=== PATIENT | female | born 1990 | race Two or more races ===

== ENCOUNTER 2019-12-04 14:48 | Outpatient (CLI) | payer OTHER ==
[2019-12-04 16:46] LABS: APPEARANCE,URINE CLEAR; BILIRUBIN,URINE NEGATIVE (NEGATIVE); COLOR,URINE YELLOW; GLUCOSE, URINE >=500 mg/dL (NEGATIVE); KETONES,URINE TRACE mg/dL (NEGATIVE); LEUKOCYTE ESTERASE,URINE NEGATIVE (NEGATIVE); NITRITE,URINE NEGATIVE (NEGATIVE); PROTEIN,URINE NEGATIVE (NEGATIVE); URINE SPECIFIC GRAVITY 1.017; UROBILINOGEN,URINE NEGATIVE mg/dL (<2.0)
[2019-12-04 17:01] LABS: URINE AMPHETAMINES SCREEN NEGATIVE; URINE BARBITURATES SCREEN NEGATIVE; URINE BENZODIAZEPINES SCREEN NEGATIVE; URINE COCAINE SCREEN NEGATIVE; URINE MARIJUANA (THC) SCREEN NEGATIVE; URINE METHADONE SCREEN NEGATIVE; URINE PHENCYCLIDINE SCREEN NEGATIVE
--- NOTE | 2019-12-04 19:35 | Non Stress Test Report ---
Non Stress Test Datetime Report Generated by CPN: 12/04/2019 19:34 DEMOGRAPHIC EGA NST: 35.2 VITAL SIGNS Temperature - NST: 99.2 Pulse - NST: 109 RESP - NST: 18 NBPSYS NST: 90 NBPDIA NST: 52 MONITORING Monitor Explained: Monitor Explained; Test Explained; Patient Verbalized Understanding (Annotations: Data stored by [facility] on behalf of user) Time on Monitor: 12/04/2019 15:15 Time off Monitor: 12/04/2019 16:30 NST Duration: 75 NST INTERVENTIONS NST Interventions: PO Hydration Physician Notified NST: Ric Malone, CNM BABY A: [id number] BABY A Movement : Present Contraction Frequency : x1 FHR Baseline : 145 Accelerations : 15X15 Decelerations : None Variability : Moderate 6-25bpm NST Review: Meets Criteria for Reactive NST NST Review and Verified By : Pebbles chang [facility] NST Results: Reactive NST REPORT Report Trigger: Send Report
== END 2019-12-04 16:47 | disposition home or self-care (01) ==
LOC: LC 14:48
PROVIDERS: ATTEND Obstetrics & Gynecology Gynecology
DX: O36.8130 Decreased fetal movements, third trimester, not applicable or unspecified (principal); Z3A.35 35 weeks gestation of pregnancy
CPT/HCPCS: 59025; 80307; 81001; 82962

== ENCOUNTER 2019-12-23 13:39 | Inpatient (IN) | payer OTHER ==
[2019-12-23 14:37] LABS: APPEARANCE,URINE CLEAR; BILIRUBIN,URINE NEGATIVE (NEGATIVE); COLOR,URINE YELLOW; GLUCOSE, URINE NEGATIVE (NEGATIVE); KETONES,URINE NEGATIVE (NEGATIVE); LEUKOCYTE ESTERASE,URINE NEGATIVE (NEGATIVE); NITRITE,URINE NEGATIVE (NEGATIVE); PROTEIN,URINE NEGATIVE (NEGATIVE); UROBILINOGEN,URINE NEGATIVE mg/dL (<2.0)
[2019-12-23] MEDS ORDERED: CEFAZOLIN SODIUM 2 GM in DEXTROSE 5%-WATER 50 ML IV PRN (14:40)
[2019-12-23] MEDS ORDERED: CITRIC ACID/SODIUM CITRATE ORAL SOLN 15 ML UDCUP ONE (14:51)
[2019-12-23] MEDS ORDERED: CEFAZOLIN 2 GM/D5W RTU 2 GM/50 ML RTUPB IV ONE (14:51)
--- NOTE | 2019-12-23 14:51 | Admission Physical ---
Datetime Report Generated by CPN: 12/23/2019 14:50 CURRENT ADMISSION Chief Complaint: Suspected Ruptured Membranes Admit Impression : Term, Intrauterine ; Ruptured Membranes; Repeat Section Admit Impression- Other: Hx GDM Admit Plan: Admit to Unit; Initiate Section Protocol ALLERGIES Medication Allergies: No Medication Allergies: No Known Allergies (12/04/2019) Latex: No Latex Allergies OBSTETRICAL HISTORY EDC: 01/06/2020 00:00 : 4 Para: 3 Term: 0 : 3 SAB: 0 IAB: 0 Ectopic: 0 Livin Cesareans: 3 VBACs: 0 Multiple Births: 0 PHYSICAL EXAM General: Normal HEENT: Normal Neurologic: Normal Thyroid: Normal Heart: Normal Lungs: Normal Breast: Normal Back: Normal Abdomen: Normal Genitourinary Exam: Normal Extremities: Normal DTRs: Normal Pelvic Type: Adequate Vital Signs: Reviewed VAGINAL EXAM Contraction Comments: none FETUS A EGA: 38.0 Monitoring: External US FHR- Baseline: 150 Variability: Moderate 6-25bpm Accelerations: 15X15 Decelerations: None FHR Category: Category I Admit Comment: , 37.1 wks, presents c/o SROM around 12 pm today. Denies contractions or bleeding. Pt last ate at 10 am. Previous x 3. Hx of GDM this on Glyburide, then MFM added insulin as well. +Acti-prom noted in lab. GBS negative. ? hx of uterine septum noted in chart. Will admit pt for Rpt Section. Dr Craft notified INFORMED CONSENT Assignment: Nimo Craft MD Signature: with User ID: Rosalia : with User ID: Rosalia
[2019-12-23 14:58] LABS: URINE AMPHETAMINES SCREEN NEGATIVE; URINE BARBITURATES SCREEN NEGATIVE; URINE BENZODIAZEPINES SCREEN NEGATIVE; URINE COCAINE SCREEN NEGATIVE; URINE MARIJUANA (THC) SCREEN NEGATIVE; URINE METHADONE SCREEN NEGATIVE; URINE PHENCYCLIDINE SCREEN NEGATIVE
[2019-12-23 15:17] LABS: ABSOLUTE EOSINOPHILS # (AUTO) 0.1 10^3/uL (0.0-0.6); ABSOLUTE LYMPHOCYTES (AUTO) 1.6 10^3/uL (0.5-4.7); ABSOLUTE MONOCYTES (AUTO) 0.4 10^3/uL (0.1-1.4); ABSOLUTE NEUT (AUTO) 7.8 10^3/uL (1.7-8.2); BASOPHILS % (AUTO) 0.3 % (0-2); EOSINOPHILS % (AUTO) 0.9 % (0-6); HEMATOCRIT 31.9 % (36.0-47.0); HEMOGLOBIN 10.8 g/dL (12.0-15.5); LYMPHOCYTES % (AUTO) 16.2 % (13-45); MEAN CORPUSCULAR HEMOGLOBIN 24.8 pg (27.0-33.4); MEAN CORPUSCULAR HGB CONC 33.8 g/dL (32.0-36.0); MEAN CORPUSCULAR VOLUME 74 fl (80-97); PLATELET COUNT 202 10^3/uL (150-450); RED BLOOD COUNT 4.34 10^6/uL (3.72-5.28); RED CELL DISTRIBUTION WIDTH 16.1 % (11.5-14.0); SEGMENTED NEUTROPHILS % (AUTO) 78.6 % (42-78); TOTAL CELLS COUNTED % (AUTO) 100 %; WHITE BLOOD COUNT 9.9 10^3/uL (4.0-10.5)
[2019-12-23] MEDS ORDERED: OXYTOCIN 10 UNIT/ML VIAL ONE ×2 (15:23→15:35)
[2019-12-23] MEDS ORDERED: MISOPROSTOL 0.2 MG TABLET ONE (15:23)
[2019-12-23] MEDS ORDERED: METHYLERGONOVINE MALEATE INJ/PF 0.2 MG/1 ML AMPULE ONE (15:23)
[2019-12-23] MEDS ORDERED: OXYTOCIN/0.9 % SODIUM CHLORIDE 30 UNIT/500 ML RTUINJ ONE (15:35)
[2019-12-23] MEDS ORDERED: KETOROLAC TROMETHAMINE INJ/PF 30 MG/1 ML SDV ONE (15:35)
[2019-12-23] MEDS ORDERED: GLYCOPYRROLATE INJ 0.4 MG/2 ML VIAL ONE (15:35)
[2019-12-23] MEDS ORDERED: MIDAZOLAM 2 MG/2 ML INJ ONE (15:35)
[2019-12-23] MEDS ORDERED: ONDANSETRON HCL INJ/PF 4 MG/2 ML SDV ONE (15:35)
[2019-12-23] MEDS ORDERED: EPHEDRINE SULFATE INJ 50 MG/1 ML AMPULE ONE (15:35)
[2019-12-23] MEDS ORDERED: ACETAMINOPHEN 1,000 MG/100 ML RTUPB IV ONE (15:35)
[2019-12-23] MEDS ORDERED: FENTANYL CITRATE INJ/PF 100 MCG/2 ML AMPUL ONE ×2 (15:35→17:49)
[2019-12-23] MEDS ORDERED: NORMAL SALINE 250 ML IV PRN ×3 (15:36)
[2019-12-23] MEDS ORDERED: DIPH/PERTUSS(ACELL)/TETANUS VAC/PF 0.5 ML SYR (>=10YO) IM PRN ×2 (15:57→16:58)
[2019-12-23] MEDS ORDERED: ACETAMINOPHEN 325 MG TABLET PO PRN ×2 (15:57→16:58)
[2019-12-23] MEDS ORDERED: MEASLES,MUMPS&RUBELLA VACC/PF 0.5 ML VIAL SUBCUT PRN ×2 (15:57→16:58)
[2019-12-23] MEDS ORDERED: OXYTOCIN/0.9 % SODIUM CHLORIDE 30 UNIT/500 ML RTUINJ IV PRN ×2 (15:57→16:58)
[2019-12-23] MEDS ORDERED: OXYCODONE-ACETAMINOPHEN 5-325 MG TABLET PO PRN ×3 (15:57→16:58)
[2019-12-23] MEDS ORDERED: SIMETHICONE 80 MG TAB.CHEW PO PRN ×2 (15:57→16:58)
[2019-12-23] MEDS ORDERED: RINGERS SOLUTION,LACTATED 1,000 ML IV PRN ×2 (15:57→16:58)
[2019-12-23] MEDS ORDERED: PROMETHAZINE HCL INJ 25 MG/1 ML VIAL IV PRN ×2 (15:57→16:58)
[2019-12-23] MEDS ORDERED: ACETAMINOPHEN 1,000 MG/100 ML RTUPB IV PRN (16:58)
[2019-12-23] MEDS ORDERED: MORPHINE SULFATE 10 MG/ML INJ IV PRN (16:58)
--- NOTE | 2019-12-23 17:07 | Operative Report ---
Operative Report DATE OF SURGERY: 12/23/19 PREOPERATIVE DIAGNOSIS: IUP at 37 weeks and 2 days, previous x3, rupt ure of membranes POSTOPERATIVE DIAGNOSIS: Same OPERATION: Repeat low transverse hysterotomy section SURGEON: SAURAV GUZMAN ANESTHESIA: Spinal COMPLICATIONS: None ESTIMATED BLOOD LOSS: 750 cc INTRAOPERATIVE FINDINGS: Female infant in breech presentation Apgars of 7 and 8, multiple adhesions at every layer including skin bladder was adhesed high on the uterus thick adhesions of the rectus and fascial layers PROCEDURE: PROCEDURE IN DETAIL: The patient was taken to the operating room, prepared and draped in a normal sterile fashion in a supine position with a leftward tilt. A transverse skin incision was made with a scalpel and carried through to the underlying layer of fascia with the same scalpel. The fascia was excised in the midline and extended laterally with Nigel. The fascia was then dissected from the rectus muscle sharply with Nigel and the rectus muscle was divided and the peritoneal cavity was entered sharply with the same Metzenbaum. With good visualization of the bladder and the uterus the bladder blade was inserted. The hysterotomy was nicked with a scalpel and extended laterally with surgeon finger fraction. The was then delivered atraumatically using breech maneuvers for extraction. The nose and mouth were suctioned with a suction bulb, the cord was clamped and cut and handed off to awaiting pediatricians. Cord blood was collected. The placenta was removed manually. The uterus was exteriorized and cleared of clots and debris. The hysterotomy was closed with 0 Monocryl in a running, locked fashion. A second layer of the same suture was used to imbricate to ensure hemostasis. The uterus was returned to the abdomen and peritoneal cavity was cleared of clots and debris. The rectus muscle and peritoneum were repaired with mattress stitch of 2-0 Chromic. The fascia was closed with 0-Vicryl. The subcutaneous layer was closed with plain catgut and the skin was closed with 4-0 Vicryl. The patient tolerated the procedure well. Sponge, lap, and needle counts correct x2 and the patient was taken to recovery in stable condition.
[2019-12-23] MEDS ORDERED: MEPERIDINE HCL/PF INJ 25 MG/1 ML DISP.SYRIN ONE (17:38)
[2019-12-23] MEDS ORDERED: IBUPROFEN 800 MG TABLET PO SCH (18:00)
[2019-12-23] MEDS ORDERED: DOCUSATE SODIUM 100 MG CAPSULE PO SCH (18:00)
[2019-12-23] MEDS: OXYCODONE-ACETAMINOPHEN 5-325 MG TABLET PO PRN (19:40)
[2019-12-23] MEDS: DOCUSATE SODIUM 100 MG CAPSULE PO SCH (20:22)
[2019-12-23] MEDS ORDERED: GLUCAGON,HUMAN RECOMB 1 MG INJ IM PRN (20:30)
[2019-12-23] MEDS ORDERED: DEXTROSE 40% GEL 15 GM TUBE PO PRN (20:30)
[2019-12-23] MEDS ORDERED: DEXTROSE 50%-WATER SYRINGE 25 GM/50 ML DOSE IV PRN (20:30)
[2019-12-23] MEDS ORDERED: DEXTROSE 40% GEL 15 GM TUBE X 2 PO PRN (20:30)
[2019-12-23] MEDS ORDERED: DEXTROSE 50%-WATER SYRINGE 12.5 GM/25 ML DOSE IV PRN (20:30)
[2019-12-23] MEDS: CEFAZOLIN 1 GM/D5W RTU 1 GM/50 ML RTUPB IV SCH ×2 (20:31→23:05)
[2019-12-23] MEDS: INSULIN REG, HUMAN 100 UNIT/ML 3 ML VIAL (PYX) SUBCUT SCH (21:13)
[2019-12-23] MEDS ORDERED: KETOROLAC TROMETHAMINE INJ/PF 30 MG/1 ML SDV IV SCH (22:00)
[2019-12-23] MEDS: IBUPROFEN 800 MG TABLET PO SCH (23:03)
[2019-12-23] MEDS: KETOROLAC TROMETHAMINE INJ/PF 30 MG/1 ML SDV IV SCH (23:04)
[2019-12-24] MEDS: OXYCODONE-ACETAMINOPHEN 5-325 MG TABLET PO PRN ×4 (00:16→19:51)
[2019-12-24] MEDS ORDERED: MORPHINE SULFATE 10 MG/ML INJ ONE (02:30)
[2019-12-24] MEDS: MORPHINE SULFATE 10 MG/ML INJ IV PRN ×2 (02:35→06:56)
[2019-12-24] MEDS: IBUPROFEN 800 MG TABLET PO SCH ×4 (05:12→23:20)
[2019-12-24] MEDS: CEFAZOLIN 1 GM/D5W RTU 1 GM/50 ML RTUPB IV SCH ×4 (05:17→23:19)
[2019-12-24 08:06] LABS: HEMATOCRIT 25.9 % (36.0-47.0); HEMOGLOBIN 8.8 g/dL (12.0-15.5); MEAN CORPUSCULAR HEMOGLOBIN 24.8 pg (27.0-33.4); MEAN CORPUSCULAR HGB CONC 33.8 g/dL (32.0-36.0); MEAN CORPUSCULAR VOLUME 73 fl (80-97); PLATELET COUNT 161 10^3/uL (150-450); RED BLOOD COUNT 3.53 10^6/uL (3.72-5.28); RED CELL DISTRIBUTION WIDTH 16.2 % (11.5-14.0)
[2019-12-24] MEDS: KETOROLAC TROMETHAMINE INJ/PF 30 MG/1 ML SDV IV SCH (09:09)
[2019-12-24] MEDS: DOCUSATE SODIUM 100 MG CAPSULE PO SCH ×2 (09:10→18:02)
[2019-12-24] MEDS: PRENATAL VITAMIN W DHA CAPSULE PO SCH (09:10)
[2019-12-24] MEDS: INSULIN REG, HUMAN 100 UNIT/ML 3 ML VIAL (PYX) SUBCUT SCH ×2 (09:21→23:19)
[2019-12-24] MEDS ORDERED: PRENATAL VITAMIN W DHA CAPSULE PO SCH (10:00)
--- NOTE | 2019-12-24 13:53 | PDOC PROGRESS REPORT ---
Subjective-OB Progress Note for:: 12/24/19 Subjective: 29yo s/p repeat ppd1 . Pt ambulating, voiding and passing gas without difficulty. Reports pain well controlled with medication. No concerns today except for glucose management Physical Exam (OB) Vital Signs: Temp Pulse Resp BP Pulse Ox 97.9 F 77 16 113/59 L 100 12/24/19 11:37 12/24/19 11:37 12/24/19 08:05 12/24/19 11:37 12/24/19 11:37 Intake & Output 12/23/19 12/24/19 12/25/19 06:59 06:59 06:59 Intake Total 100 Output Total 1900 400 Balance -1800 -400 Weight 74 kg - General General Appearance: Appears well In distress: None - PIH/Pre-Eclampsia Clonus: Negative Headache: Absent Epigastric Pain: No Visual Changes: No - Dressing Removed: No - Maternal Morbidity 59. Maternal Morbidity (serious complications experinced by the mother associated with labor and delivery: None of the above - Lochia Lochia Amount: Small 10-25 ml Lochia Color: Rubra/Red - Abdomen Description: Firm Hernia Present: No Fundal Description: Firm Fundal Height: u/u - u/2 - Respiratory Respiratory Status: No respiratory distress - Extremities Upper extremity: Normal inspection Lower extremities: Normal inspection - Neurological Cognition: Normal Orientation: AAOx4 - Psychological Associated symptoms: Normal affect, Normal mood Objective-Diagnostic Laboratory: 12/24/19 07:47 12/23/19 12/23/19 12/23/19 13:58 15:02 15:02 WBC 9.9 RBC 4.34 Hgb 10.8 L Hct 31.9 L MCV 74 L MCH 24.8 L MCHC 33.8 RDW 16.1 H Plt Count 202 Seg Neutrophils % 78.6 H Urine Color YELLOW Urine Appearance CLEAR Urine pH 7.0 Ur Specific [place] 1.010 Urine Protein NEGATIVE Urine Glucose (UA) NEGATIVE Urine Ketones NEGATIVE Urine Blood NEGATIVE Urine Nitrite NEGATIVE Ur Leukocyte Esterase NEGATIVE Blood Type A POSITIVE Antibody Screen NEGATIVE 12/24/19 07:47 WBC 8.0 RBC 3.53 L Hgb 8.8 L Hct 25.9 L MCV 73 L MCH 24.8 L MCHC 33.8 RDW 16.2 H Plt Count 161 Seg Neutrophils % Urine Color Urine Appearance Urine pH Ur Specific [place] Urine Protein Urine Glucose (UA) Urine Ketones Urine Blood Urine Nitrite Ur Leukocyte Esterase Blood Type Antibody Screen Assessment and Plan(PN) - Assessment and Plan (1) S/P repeat low transverse Is this a current diagnosis for this admission?: Yes Plan: routine pp care (2) Anemia complicating , third trimester Is this a current diagnosis for this admission?: Yes Plan: increase dietary iron and FeSO4 BID (3) Acute blood loss anemia Is this a current diagnosis for this admission?: Yes Plan: increase dietary iron and FeSO4 BID IV iron ordered (4) Insulin controlled gestational diabetes mellitus (GDM) in third trimester Is this a current diagnosis for this admission?: Yes Plan: will continue insulin at this time, will discuss sliding scale/orders with Dr. Sotelo who is the OB carton repairer today. Add metformin at this time as pt was taking metformin at home in addition to insulin, continue to monitor (5) Previous delivery affecting Is this a current diagnosis for this admission?: Yes Plan: routine pp care - Time Spent with Patient Time with patient: Less than 15 minutes Medications reviewed and adjusted accordingly: Yes - Disposition Anticipated Discharge Disposition: Home, Self Care Anticipated Discharge Timeframe: within 24 hours
[2019-12-24] MEDS ORDERED: IRON SUCROSE COMPLEX INJ/PF 100 MG/5 ML SDV IV ONE ×2 (14:00→14:30)
[2019-12-24] MEDS: METFORMIN HCL 500 MG TABLET PO SCH (15:28)
[2019-12-25] MEDS: OXYCODONE-ACETAMINOPHEN 5-325 MG TABLET PO PRN ×2 (03:32→08:15)
[2019-12-25] MEDS: IBUPROFEN 800 MG TABLET PO SCH ×2 (05:19→12:58)
[2019-12-25] MEDS: CEFAZOLIN 1 GM/D5W RTU 1 GM/50 ML RTUPB IV SCH ×2 (05:19→12:54)
[2019-12-25] MEDS: INSULIN REG, HUMAN 100 UNIT/ML 3 ML VIAL (PYX) SUBCUT SCH (08:02)
--- NOTE | 2019-12-25 09:35 | PDOC DISCHARGE SUMMARY ---
Impression - Admit/DC Date/PCP Admission Date/Primary Care Provider: 12/23/19 14:37 KAYLEEN VALE MD Discharge Date: 12/25/19 - Discharge Diagnosis (1) Acute blood loss anemia Is this a current diagnosis for this admission?: Yes (2) Insulin controlled gestational diabetes mellitus (GDM) in third trimester Is this a current diagnosis for this admission?: Yes (3) S/P repeat low transverse Is this a current diagnosis for this admission?: Yes - Additional Information Discharge Diet: Regular Discharge Activity: Balance Activity w/Rest, No Lifting Over 10 Pounds, No Lifting/Push/Pulling, Pelvic Rest, No tub bath Referrals: KAYLEEN VALE MD [Primary Care Provider] - Prescriptions: Docusate Sodium [Colace 100 mg Capsule] 100 mg PO BID #60 capsule Ferrous Sulfate [Ferosul] 325 mg PO DAILY #30 tablet Ibuprofen [Motrin 800 mg Tablet] 800 mg PO Q8HP PRN #90 tablet PRN Reason: Oxycodone HCl/Acetaminophen [Percocet 5-325 mg Tablet] 1 tab PO Q4HP PRN #30 tablet PRN Reason: Vit/Dha [ Multi + Dha Capsule] 1 cap PO DAILY #90 capsule Home Medications: Pnv No.95/Ferrous Fum/Folic AC [ Caplet] 1 each PO DAILY 12/04/19 Docusate Sodium [Colace 100 mg Capsule] 100 mg PO BID #60 capsule 12/25/19 Ferrous Sulfate [Ferosul] 325 mg PO DAILY #30 tablet 12/25/19 Ibuprofen [Motrin 800 mg Tablet] 800 mg PO Q8HP PRN #90 tablet 12/25/19 Oxycodone HCl/Acetaminophen [Percocet 5-325 mg Tablet] 1 tab PO Q4HP PRN #30 tablet 12/25/19 Vit/Dha [ Multi + Dha Capsule] 1 cap PO DAILY #90 capsule 12/25/19 Hospital Course 59. Maternal Morbidity (serious complications experinced by the mother associated with labor and delivery: None of the above Results Laboratory Results: WBC 8.0 10^3/uL (4.0-10.5) 12/24/19 07:47 RBC 3.53 10^6/uL (3.72-5.28) L 12/24/19 07:47 Hgb 8.8 g/dL (12.0-15.5) L 12/24/19 07:47 Hct 25.9 % (36.0-47.0) L 12/24/19 07:47 MCV 73 fl (80-97) L 12/24/19 07:47 MCH 24.8 pg (27.0-33.4) L 12/24/19 07:47 MCHC 33.8 g/dL (32.0-36.0) 12/24/19 07:47 RDW 16.2 % (11.5-14.0) H 12/24/19 07:47 Plt Count 161 10^3/uL (150-450) 12/24/19 07:47 Lymph % (Auto) 16.2 % (13-45) 12/23/19 15:02 [place] % (Auto) 4.0 % (3-13) 12/23/19 15:02 Eos % (Auto) 0.9 % (0-6) 12/23/19 15:02 Baso % (Auto) 0.3 % (0-2) 12/23/19 15:02 Absolute Neuts (auto) 7.8 10^3/uL (1.7-8.2) 12/23/19 15:02 Absolute Lymphs (auto) 1.6 10^3/uL (0.5-4.7) 12/23/19 15:02 Absolute Monos (auto) 0.4 10^3/uL (0.1-1.4) 12/23/19 15:02 Absolute Eos (auto) 0.1 10^3/uL (0.0-0.6) 12/23/19 15:02 Absolute Basos (auto) 0.0 10^3/uL (0.0-0.2) 12/23/19 15:02 Seg Neutrophils % 78.6 % (42-78) H 12/23/19 15:02 POC Glucose 137 mg/dL (70-110) H 12/25/19 07:39 Urine Color YELLOW 12/23/19 13:58 Urine Appearance CLEAR 12/23/19 13:58 Urine pH 7.0 (5.0-9.0) 12/23/19 13:58 Ur Specific [place] 1.010 12/23/19 13:58 Urine Protein NEGATIVE mg/dL (NEGATIVE) 12/23/19 13:58 Urine Glucose (UA) NEGATIVE mg/dL (NEGATIVE) 12/23/19 13:58 Urine Ketones NEGATIVE mg/dL (NEGATIVE) 12/23/19 13:58 Urine Blood NEGATIVE (NEGATIVE) 12/23/19 13:58 Urine Nitrite NEGATIVE (NEGATIVE) 12/23/19 13:58 Urine Bilirubin NEGATIVE (NEGATIVE) 12/23/19 13:58 Urine Urobilinogen NEGATIVE mg/dL (<2.0) 12/23/19 13:58 Ur Leukocyte Esterase NEGATIVE (NEGATIVE) 12/23/19 13:58 Urine Ascorbic Acid NEGATIVE (NEGATIVE) 12/23/19 13:58 Membranes Rupture POSITIVE (NEGATIVE) H 12/23/19 13:58 Urine Opiates Screen NEGATIVE 12/23/19 13:58 Urine Methadone Screen NEGATIVE 12/23/19 13:58 Ur Barbiturates Screen NEGATIVE 12/23/19 13:58 Ur Phencyclidine Scrn NEGATIVE 12/23/19 13:58 Ur Amphetamines Screen NEGATIVE 12/23/19 13:58 U Benzodiazepines Scrn NEGATIVE 12/23/19 13:58 Urine Cocaine Screen NEGATIVE 12/23/19 13:58 U Marijuana (THC) Screen NEGATIVE 12/23/19 13:58 RPR NONREACTIVE (NONREACTIVE) 12/23/19 15:02 Blood Type A POSITIVE 12/23/19 15:02 Blood Type Confirm A POSITIVE 12/23/19 15:39 Antibody Screen NEGATIVE 12/23/19 15:02 Crossmatch See Detail 12/23/19 15:02 Plan Health Concerns: GDM dx early in and now has labile blood sugars; discussed with dr vale, pt will stop diabetic meds, keep detailed log of bs and diet and make appt with PCM JHOAN Plan of Treatment: follow up in one week at [facility] for incision check
[2019-12-25] MEDS: METFORMIN HCL 500 MG TABLET PO SCH (09:40)
[2019-12-25] MEDS: DOCUSATE SODIUM 100 MG CAPSULE PO SCH (09:40)
[2019-12-25] MEDS: PRENATAL VITAMIN W DHA CAPSULE PO SCH (09:40)
[2019-12-25 11:56] VITALS: BP 118/66
== END 2019-12-25 15:43 | disposition home or self-care (01) | DRG 787 ==
LOC: LC 13:39 → LR 14:37 → 2S 18:30
PROVIDERS: ADMIT Obstetrics & Gynecology; ATTEND Obstetrics & Gynecology
PROC: 10D00Z1 Extraction of Products of Conception, Low, Open Approach (ICD-10-PCS; principal; 2019-12-23)
DX: O34.211 Maternal care for low transverse scar from previous cesarean delivery (principal); D62 Acute posthemorrhagic anemia; O32.1XX0 Maternal care for breech presentation, not applicable or unspecified; O24.425 Gestational diabetes mellitus in childbirth, controlled by oral hypoglycemic drugs; O34.03 Maternal care for unspecified congenital malformation of uterus, third trimester; O99.62 Diseases of the digestive system complicating childbirth; O99.02 Anemia complicating childbirth; Z3A.37 37 weeks gestation of pregnancy; Q51.20 Other doubling of uterus, unspecified; N85.8 Other specified noninflammatory disorders of uterus; K66.0 Peritoneal adhesions (postprocedural) (postinfection); Z37.0 Single live birth
CPT/HCPCS: 1961; 36415; 80307; 81005; 82962; 84112; 85025; 85027; 86592; 86850; 86900; 86901; 86920; 94799; 99140; J0131; J0690; J1756; J1815; J1885; J2175; J2210; J2250; J2270; J2405; J2550; J2590; J3010; J3490; J7120